=== PATIENT | male | born 1990 | race Caucasian/White ===

== ENCOUNTER 2023-09-02 08:31 | Outpatient (CLI) | payer BC ==
[2023-09-02] MEDS ORDERED: BARIUM SULFATE 135 ML SUSP.RECON (E-Z-HD) PO ONE (08:52)
== END 2023-09-02 18:00 | disposition home or self-care (01) ==
LOC: SRD 08:31
PROVIDERS: ATTEND Internal Medicine Gastroenterology
DX: K22.89 Other specified disease of esophagus (principal); R13.10 Dysphagia, unspecified
CPT/HCPCS: 74220

== ENCOUNTER 2023-09-18 06:43 | Day surgery (SDC) | payer BC ==
[~2023-09-18] VITALS: Ht 175.3 cm; Wt 127.0 kg
[2023-09-18] MEDS ORDERED: CEFAZOLIN SOD 2 GM in D5W 50 ML IV ONE (07:00)
[2023-09-18] MEDS ORDERED: LR 1,000 ML IV SCH ×2 (07:00→07:45)
[2023-09-18] MEDS ORDERED: MORPHINE 4 MG INJ. 4 MG/ML VIAL IVP PRN (07:45)
[2023-09-18] MEDS ORDERED: SOD CL IV ONE (08:26)
[2023-09-18] MEDS ORDERED: ESMOLOL HCL IV ONE (08:26)
[2023-09-18] MEDS ORDERED: DEXAMETHASONE SOD PHOSPHATE 4 MG/ML VIAL ONE (08:26)
[2023-09-18] MEDS ORDERED: ROCURONIUM BROMIDE 10 MG/ML (ZEMURON) ONE (08:26)
[2023-09-18] MEDS ORDERED: fentaNYL CITRATE/PF 100 MCG/2 ML AMP ONE (08:26)
[2023-09-18] MEDS ORDERED: LIDOCAINE/EPI 1% 1:100000 20 ML VIAL ONE (08:26)
[2023-09-18] MEDS ORDERED: ONDANSETRON HCL 4 MG/2 ML VIAL ONE ×2 (08:26→11:46)
[2023-09-18] MEDS ORDERED: LR 1,000 ML IV.SOLN IV ONE (08:26)
[2023-09-18] MEDS ORDERED: ePHEDrine sulfate 50 MG/ML VIAL ONE (08:26)
[2023-09-18] MEDS ORDERED: MIDAZOLAM HCL 2 MG/2 ML VIAL (VERSED) ONE (08:26)
[2023-09-18] MEDS ORDERED: SEVOFLURANE 15 MIN GAS INH ONE (08:26)
[2023-09-18] MEDS ORDERED: PROPOFOL 200MG/ 20ML VIAL (DIPRIVAN) IV ONE (08:26)
[2023-09-18] MEDS ORDERED: BREVIBLOC IV ONE (08:26)
[2023-09-18] MEDS ORDERED: SUCCINYLCHOLINE CHLORIDE 20 MG/ML(QUELICIN) ONE (08:26)
[2023-09-18] MEDS ORDERED: BUPIVACAINE /PF 0.5% 30 ML VIAL ONE (08:26)
[2023-09-18] MEDS ORDERED: SUGAMMADEX SODIUM 200 MG/2 ML VIAL IV ONE (08:26)
[2023-09-18] MEDS ORDERED: ACETAMINOPHEN I.V. 1000 MG 100 ML IV ONE (08:45)
[2023-09-18] MEDS ORDERED: HYDROmorphone 1 MG/ML INJ. CARTRIDGE ONE (11:43)
[2023-09-18] MEDS: ONDANSETRON HCL 4 MG/2 ML VIAL IVP PRN (11:44)
[2023-09-18] MEDS: HYDROmorphone 1 MG/ML INJ. CARTRIDGE IVP PRN (11:45)
[2023-09-18 12:27] VITALS: O2SAT 98
[2023-09-18 14:06] VITALS: BP_SYST 119; PULSE 111; RESP 18; TEMP 98.1
== END 2023-09-18 13:32 | disposition home or self-care (01) ==
LOC: SDS 06:43
PROVIDERS: ATTEND Surgery
DX: K80.12 Calculus of gallbladder with acute and chronic cholecystitis without obstruction (principal); R10.10 Upper abdominal pain, unspecified; R13.10 Dysphagia, unspecified; K21.9 Gastro-esophageal reflux disease without esophagitis; E66.01 Morbid (severe) obesity due to excess calories; M19.90 Unspecified osteoarthritis, unspecified site; Z68.41 Body mass index [BMI] 40.0-44.9, adult; Z98.890 Other specified postprocedural states; Z79.899 Other long term (current) drug therapy; Z83.3 Family history of diabetes mellitus
CPT/HCPCS: 47562; 87081; 88304; J3490 ×2; J0690; J1100; J3465; J2405; J2704; J0330; J3010; J1170; J7060; J7120; C1727; J0131